=== PATIENT | male | born 1940 | race Two or more races ===

== ENCOUNTER → 2024-08-08 | Outpatient (CLI) | payer MEDICARE, MEDICAID, SELFPAY ==
[2024-08-08 14:13] LABS: Basophils % (Auto) 1 % (0-2.5); Eosinophils # (Auto) 0.3 Thou/mm3 (0.0-0.5); Eosinophils % (Auto) 3 % (0-10); Hematocrit 39.3 % (41.0-53.0); Hemoglobin 13.2 g/dL (13.5-16.0); Immature Granulocytes % (Auto) 1 % (0-0); Immature Granulocytes Auto 0.04 Thou/mm3 (0.00-0.00); Lymphocytes # (Auto) 1.8 Thou/mm3 (1.0-4.8); Lymphocytes % (Auto) 22 % (10-50); Mean Corpuscular HGB Conc 33.6 g/dl (31.0-37.0); Mean Corpuscular Volume 86 fL (80-100); Monocytes # (Auto) 0.7 Thou/mm3 (0.0-0.8); Monocytes % (Auto) 8 % (0-12); Neutrophils # (Auto) 5.5 Thou/mm3 (1.8-7.7); Neutrophils % (Auto) 66 % (37-80); Nucleated Red Blood Cell % 0 /100 WBC (0); Platelet Count 208 Thou/mm3 (140-440); RDW Standard Deviation 44.1 fL (35.1-43.9); Red Blood Count 4.55 Miln/mm3 (4.50-5.90); White Blood Count 8.3 Thou/mm3 (3.8-10.6)
[2024-08-08 14:29] LABS: Alanine Aminotransferase 17 U/L (10-49); Albumin, Serum 4.1 gm/dL (3.4-4.8); Albumin/Globulin Ratio 1.5 (1.2-2.2); Alkaline Phosphatase 97 U/L (46-116); Anion Gap 8 (7-16); Aspartate Amino Transferase 17 U/L (0-34); BUN/Creatinine Ratio 29 Ratio (12-20); Bilirubin,Total 0.5 mg/dL (0.3-1.2); Blood Urea Nitrogen 47 mg/dL (9-23); Calcium 9.8 mg/dL (8.3-10.6); Calcium (Corrected) 9.8 mg/dL (8.5-10.1); Carbon Dioxide 30.2 mMol/L (20.0-31.0); Chloride 105 mMol/L (98-107); Creatinine (Component) 1.6 mg/dL (0.6-1.3); Globulin 2.7 gm/dL (2.3-3.5); Glucose 132 mg/dL (74-106); Osmolality,Calculated 299 (275-295); Potassium 4.6 mMol/L (3.4-5.1); Sodium 143 mMol/L (136-145); Total Protein 6.8 gm/dL (5.7-8.2); eGFR 43 See Note
[2024-08-08 14:43] LABS: Partial Thromboplastin Time 27.3 Seconds (22.0-36.0); Prothrombin Time 11.3 Seconds (9.0-12.2)
== END | disposition home or self-care (01) ==
PROVIDERS: PCP Family Medicine; Referring Provider Surgery Vascular Surgery; Visit Provider Surgery Vascular Surgery
DX: Z01.818 Encounter for other preprocedural examination (principal); I73.9 Peripheral vascular disease, unspecified; Z79.01 Long term (current) use of anticoagulants
CPT/HCPCS: 36415; 80053; 85025; 85610; 85730

== ENCOUNTER → 2024-09-07 | Outpatient (CLI) | payer MEDICARE, MEDICAID, SELFPAY ==
[2024-09-07 12:01] LABS: Basophils % (Auto) 0 % (0-2.5); Eosinophils # (Auto) 0.3 Thou/mm3 (0.0-0.5); Eosinophils % (Auto) 4 % (0-10); Hematocrit 34.3 % (41.0-53.0); Hemoglobin 11.5 g/dL (13.5-16.0); Immature Granulocytes % (Auto) 0 % (0-0); Immature Granulocytes Auto 0.03 Thou/mm3 (0.00-0.00); Lymphocytes # (Auto) 1.8 Thou/mm3 (1.0-4.8); Lymphocytes % (Auto) 19 % (10-50); Mean Corpuscular HGB Conc 33.5 g/dl (31.0-37.0); Mean Corpuscular Hemoglobin 28.8 pg (25.0-35.0); Mean Corpuscular Volume 86 fL (80-100); Monocytes # (Auto) 0.7 Thou/mm3 (0.0-0.8); Monocytes % (Auto) 7 % (0-12); Neutrophils # (Auto) 6.5 Thou/mm3 (1.8-7.7); Neutrophils % (Auto) 70 % (37-80); Nucleated Red Blood Cell % 0 /100 WBC (0); Platelet Count 273 Thou/mm3 (140-440); RDW Standard Deviation 44.3 fL (35.1-43.9); White Blood Count 9.3 Thou/mm3 (3.8-10.6)
--- NOTE | 2024-09-07 12:18 | EKG_ITS ---
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
[2024-09-07 12:20] LABS: Partial Thromboplastin Time 28.8 Seconds (22.0-36.0); Prothrombin Time 11.3 Seconds (9.0-12.2)
[2024-09-07 13:16] LABS: Anion Gap 10 (7-16); BUN/Creatinine Ratio 25 Ratio (12-20); Blood Urea Nitrogen 35 mg/dL (9-23); Calcium 9.1 mg/dL (8.3-10.6); Carbon Dioxide 28.8 mMol/L (20.0-31.0); Chloride 100 mMol/L (98-107); Creatinine (Component) 1.4 mg/dL (0.6-1.3); Glucose 194 mg/dL (74-106); Osmolality,Calculated 290 (275-295); Potassium 4.6 mMol/L (3.4-5.1); Sodium 139 mMol/L (136-145); eGFR 50 See Note
[2024-09-07 13:17] LABS: Alanine Aminotransferase 10 U/L (10-49); Albumin, Serum 4.1 gm/dL (3.4-4.8); Albumin/Globulin Ratio 1.6 (1.2-2.2); Alkaline Phosphatase 103 U/L (46-116); Aspartate Amino Transferase 14 U/L (0-34); Calcium (Corrected) 9.1 mg/dL (8.5-10.1); Globulin 2.5 gm/dL (2.3-3.5); Total Protein 6.6 gm/dL (5.7-8.2)
[2024-09-07 14:15] LABS: Bilirubin,Total 0.8 mg/dL (0.3-1.2)
== END | disposition home or self-care (01) ==
LOC: COPL 11:33
PROVIDERS: PCP Family Medicine; Referring Provider Surgery Vascular Surgery; Visit Provider Surgery Vascular Surgery
DX: Z01.818 Encounter for other preprocedural examination (principal); I73.9 Peripheral vascular disease, unspecified; Z79.01 Long term (current) use of anticoagulants
CPT/HCPCS: 36415; 80053; 85025; 85610; 85730; 93005

== ENCOUNTER 2024-12-25 11:27 | Emergency (ER) | payer MEDICARE, MEDICAID, SELFPAY ==
[2024-12-25 11:28] VITALS: BMI 27.1
[2024-12-25 11:45] VITALS: BP 110/61; BP 99/57; PULSE 90; RESP 18; TEMP 36.6; O2SAT 98
--- NOTE | 2024-12-25 11:49 | EKG_ITS ---
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
--- NOTE | 2024-12-25 11:49 | XR_ITS ---
Examination: PA lateral chest 2 views TECHNIQUE: Upright PA lateral chest 2 views Date and time: December 25, 2024 1207 hours Comparison September 29, 2023 INDICATIONS: Onset chest pain today FINDINGS: Minor prominence left ventricle Ectatic thoracic aorta. No pneumonia or pulmonary edema. Moderate osteopenia IMPRESSION: No pneumonia or pulmonary edema
--- NOTE | 2024-12-25 11:49 | PD.EDRME ---
Rapid Medical Screening Exam RME Arrival date/time: 12/25/24 11:27 84-year-old male presents to the emergency department today stating that he went to the clinic today and was told to come to the ER for low blood pressure Chief Complaint: General Adult/Misc Complain Time Seen by Provider: 12/25/24 16:29 Vital signs: Vital Signs Temperature 97.9 F 12/25/24 11:45 Pulse Rate 90 12/25/24 11:45 Respiratory Rate 18 12/25/24 11:45 Blood Pressure 99/57 L 12/25/24 11:45 Pulse Oximetry (%) 98 12/25/24 11:45 Oxygen Delivery Method Room Air 12/25/24 11:45
[2024-12-25 12:19] LABS: Basophils # (Auto) 0.0 Thou/mm3 (0.0-0.2); Basophils % (Auto) 1 % (0-2.5); Eosinophils # (Auto) 0.1 Thou/mm3 (0.0-0.5); Eosinophils % (Auto) 2 % (0-10); Hematocrit 36.7 % (41.0-53.0); Hemoglobin 12.7 g/dL (13.5-16.0); Immature Granulocytes Auto 0.02 Thou/mm3 (0.00-0.00); Lymphocytes # (Auto) 1.5 Thou/mm3 (1.0-4.8); Lymphocytes % (Auto) 18 % (10-50); Mean Corpuscular HGB Conc 34.6 g/dl (31.0-37.0); Mean Corpuscular Hemoglobin 29.5 pg (25.0-35.0); Mean Corpuscular Volume 85 fL (80-100); Monocytes # (Auto) 0.6 Thou/mm3 (0.0-0.8); Monocytes % (Auto) 8 % (0-12); Neutrophils # (Auto) 5.8 Thou/mm3 (1.8-7.7); Neutrophils % (Auto) 72 % (37-80); Nucleated Red Blood Cell # 0.00 Thou/mm3 (0.00-0.00); Nucleated Red Blood Cell % 0 /100 WBC (0); Platelet Count 167 Thou/mm3 (140-440); RDW Standard Deviation 43.0 fL (35.1-43.9); Red Blood Count 4.31 Miln/mm3 (4.50-5.90); White Blood Count 8.0 Thou/mm3 (3.8-10.6)
[2024-12-25 12:30] LABS: Alanine Aminotransferase 13 U/L (10-49); Albumin, Serum 4.0 gm/dL (3.4-4.8); Albumin/Globulin Ratio 1.5 (1.2-2.2); Alkaline Phosphatase 85 U/L (46-116); Anion Gap 9 (7-16); Aspartate Amino Transferase 16 U/L (0-34); BUN/Creatinine Ratio 19 Ratio (12-20); Bilirubin,Total 0.7 mg/dL (0.3-1.2); Blood Urea Nitrogen 29 mg/dL (9-23); Calcium 9.4 mg/dL (8.3-10.6); Calcium (Corrected) 9.4 mg/dL (8.5-10.1); Carbon Dioxide 26.8 mMol/L (20.0-31.0); Chloride 105 mMol/L (98-107); Creatinine (Component) 1.5 mg/dL (0.6-1.3); Estimated Creatinine Clearance 34.3 mL/min (>60); Globulin 2.7 gm/dL (2.3-3.5); Glucose 155 mg/dL (74-106); Osmolality,Calculated 290 (275-295); Potassium 4.6 mMol/L (3.4-5.1); Sodium 141 mMol/L (136-145); Total Protein 6.7 gm/dL (5.7-8.2); Troponin I < 0.020 ng/mL (0.0-0.045); eGFR 46 See Note
[2024-12-25 15:38] VITALS: BP 133/67; PULSE 67; RESP 16; TEMP 36.7; O2SAT 100
[2024-12-25 16:26] VITALS: BP 128/74; PULSE 77; RESP 20; TEMP 36.7; O2SAT 100
--- NOTE | 2024-12-25 17:14 | PD.EDADULT ---
ED General RME/HPI General Chief complaint: General Adult/Misc Complain Stated complaint: LOW BP 89/50; SENT BY [facility] [address] Time Seen by Provider: 12/25/24 16:29 Source: patient and family Arrival date/time: 12/25/24 11:27 Limitations: no limitations RME / HPI RME / HPI narrative: 84-year-old male who states he was seen in my clinic for concerns of hypotension. He has no chest pain, shortness of breath pain. Has no near syncope. He has no nausea, vomiting, or diarrhea. He denies any lower leg edema. He does endorse chronic leg pain with no acute changes. He has had no falls. Related Data Home Medications ?Medication ?Instructions ?Recorded ?Confirmed albuterol sulfate 90 mcg/actuation 90 mcg inhalation Q4HR PRN 09/30/23 09/30/23 aerosol inhaler Shortness Of Breath hydroxyzine HCl 25 mg tablet 25 mg PO QPM PRN Anxiety 09/30/23 09/30/23 Previous Rx's ?Medication ?Instructions ?Recorded amlodipine 5 mg tablet 5 mg PO QDAY #30 tabs 10/03/23 atorvastatin 40 mg tablet 40 mg PO HS #30 tabs 10/03/23 furosemide 40 mg tablet 40 mg PO QAM #30 tabs 10/03/23 levothyroxine 25 mcg capsule 25 mcg PO ACBR #30 caps 10/03/23 lisinopril 40 mg tablet 40 mg PO QDAY #30 tabs 10/03/23 pantoprazole 40 mg tablet,delayed 40 mg PO QDAY #30 tabs 10/03/23 release tamsulosin 0.4 mg capsule 0.4 mg PO HS #30 caps 10/03/23 Allergies Allergy/AdvReac Type Severity Reaction Status Date / Time No Known Allergies Allergy Verified 12/25/24 11:30 Review of Systems Review of Systems Systems Reviewed: All systems reviewed, normal except as documented ED Exam General Limitations: Present no limitations General appearance: Present alert and in no apparent distress Head Head exam: Present atraumatic Eye Eye exam: Present normal appearance, PERRL and EOMI ENT ENT exam: Present normal exam, normal oropharynx and mucous membranes moist Neck Neck exam: Present normal inspection, full ROM and trachea midline Chest Chest inspection: Present normal inspection and symmetric chest wall rise Respiratory Respiratory exam: Present normal lung sounds bilaterally Cardiovascular Cardiovascular exam: Present regular rate, normal rhythm and normal heart sounds Abdominal Exam Abdominal exam: Present soft and normal bowel sounds Extremities Exam Extremities exam: Present normal inspection and full ROM Back Exam Back exam: Present normal inspection and full ROM Neurological Exam Neurological exam: Present alert, oriented X3 and other (Patient is gait is quite brisk, he does walk with a cane at baseline.) Psychiatric Psychiatric exam: Present normal affect and normal mood Skin Skin exam: Present warm, dry, intact and normal color Course Quality Measures none Orders Category Date Time Status EKG (ED ONLY) *Do not use* NOW Care 12/25/24 11:49 Completed EKG (ED Only) Stat Exams 12/25/24 11:49 Draft XR chest 2V Stat Exams 12/25/24 11:49 Completed CBC Stat Lab 12/25/24 11:56 Completed Comprehensive Metabolic Panel Stat Lab 12/25/24 11:56 Completed Troponin I Stat Lab 12/25/24 11:56 Completed UA, C/S IF [Urinalysis, C/S if Indicated] Stat Lab 12/25/24 11:49 Ordered Vital Signs Vital signs: Vital Signs Temperature 97.9 F 12/25/24 11:45 Pulse Rate 90 12/25/24 11:45 Respiratory Rate 18 12/25/24 11:45 Blood Pressure 99/57 L 12/25/24 11:45 Pulse Oximetry (%) 98 12/25/24 11:45 Oxygen Delivery Method Room Air 12/25/24 11:45 Discharge Plan Plan Patient Disposition: HOME (Self Care) Patient condition on transfer: Stable Prescriptions/Referrals Prescriptions/Med Rec: No Action hydroxyzine HCl 25 mg Tablet 25 mg PO QPM PRN (Reason: Anxiety) albuterol sulfate 90 mcg/actuation HFA aerosol inhaler 90 mcg INHALATION Q4HR PRN (Reason: Shortness Of Breath) amlodipine 5 mg tablet 5 mg PO QDAY Qty: 30 0RF atorvastatin 40 mg tablet 40 mg PO HS Qty: 30 0RF furosemide 40 mg tablet 40 mg PO QAM Qty: 30 0RF levothyroxine 25 mcg capsule 25 mcg PO ACBR Qty: 30 0RF lisinopril 40 mg tablet 40 mg PO QDAY Qty: 30 0RF pantoprazole 40 mg tablet,delayed release (DR/EC) 40 mg PO QDAY Qty: 30 0RF tamsulosin 0.4 mg capsule 0.4 mg PO HS Qty: 30 0RF Referrals: Moreno Perry MD [Primary Care Provider] - In 1 week Problem List Clinical Impression: Hypertension, Chronic leg pain Patient/Caregiver Discharge Instructions Education Materials: Blood Pressure Check Steps Additional Instructions: - Follow-up with your primary doctor. - Return here as needed for any worsening or emergent changes. Print Language: Taiwanese Stand Alone Forms: [facility] Award Info., Patient Portal Info Letter MDM Narrative [facility] hospital course: 84-year-old male who states he was seen in my clinic for concerns of hypotension. He has no chest pain, shortness of breath pain. Has no near syncope. He has no nausea, vomiting, or diarrhea. He denies any lower leg edema. He does endorse chronic leg pain with no acute changes. He has had no falls. He states he was in the clinic today for medication refills and had no acute concerns. At the time my exam, patient was normotensive. He did initially arrive with a blood pressure of 99/57. It improved to 120 or 74 during the ER course. His CBC, CMP, revealed no acute changes. His chest x-ray and EKG are unremarkable. Patient was ambulated throughout the ER and had no near syncopal episodes. He required no assistance while walking. He had no hypotension during the ER course. At do believe the patient be discharged for outpatient follow-up. They are asked to follow-up with her doctor regarding his chronic leg pain. Return as needed for any worsening or emergent changes. Clinical Information Provided by patient and family Medical Records Reviewed None Meds/Rx Considered, not Ordered None Labs/Rad/Tests considered, not Ordered None Chronic Illness/Social Conditions which may negatively complicate care or outcome(s)-explain: None or not applicable EKG EKG Interpretation narrative: Atrial fibrillation at [address] changes or dynamic T waves. Lab Interpretation Lab(s) interpretation(s): No leukocytosis, no metabolic derangement. He has a chronically elevated creatinine at 1.5 Imaging Imaging interpretation: none and interpreted by me (Chest reveals clear spinal nodes without any mass or infiltrate.) Dispositon Disposition: Discharge Home
[2024-12-25 17:57] VITALS: BP 154/71; PULSE 72; RESP 16; TEMP 36.7; O2SAT 100
== END 2024-12-25 17:58 | disposition home or self-care (01) ==
PROVIDERS: Nurse Practitioner Primary Care; Emergency Provider Emergency Medicine; PCP Family Medicine
DX: I10 Essential (primary) hypertension (principal); M79.606 Pain in leg, unspecified; G89.29 Other chronic pain; I48.91 Unspecified atrial fibrillation
CPT/HCPCS: 36415; 71046; 80053; 81001; 84484; 85025; 93005; 99283